=== PATIENT | female | born 1970 | race African-American/Black ===

== ENCOUNTER 2020-11-28 17:15 | Emergency (ER) | payer OTHER ==
[~2020-11-28] VITALS: Ht 180.3 cm; Wt 97.1 kg
--- NOTE | 2020-11-28 17:30 | NUR ---
right hip pain radiating to right leg x 2 days10/10 pain scale Hx arthritis. Patient a/ox4, ambulatory with steady gait. Assisted to bed.
[2020-11-28] MEDS ORDERED: KETOROLAC TROMETHAMINE INJ 60 MG/2 ML VIAL IM ONE (17:49)
[2020-11-28] MEDS ORDERED: DEXAMETHASONE SOD PHOSPHATE 10 MG/ML VIAL ONE (17:49)
[2020-11-28] MEDS: DEXAMETHASONE SOD PHOSPHATE 10 MG/ML VIAL IM ONE (17:56)
[2020-11-28] MEDS: KETOROLAC TROMETHAMINE INJ 60 MG/2 ML VIAL IM ONE (17:56)
--- NOTE | 2020-11-28 18:11 | NUR ---
Patient resting, no distress noted.
[2020-11-28 18:31] LABS: BILIRUBIN,URINE Negative (NEGATIVE); COLOR,URINE YELLOW (YELLOW); LEUKOCYTE ESTERASE ,URINE Negative (NEGATIVE); NITRITE, URINE Negative (NEGATIVE); PROTEIN,URINE Negative (NEGATIVE); UGLUCOSE Negative (NEGATIVE); UROBILINOGEN,URINE 0.2 EU/dL (0.2)
[2020-11-28 19:08] VITALS: BP 155/139
--- NOTE | 2020-11-28 19:08 | NUR ---
Patient discharged to home in stable condition. Written and verbal after care instructions given. Patient verbalizes understanding of instruction.
[2020-11-28 19:14] LABS: BACTERIA,URINE Rare /HPF (None Seen); SQUAMOUS EPITHELIAL CELL,UR Few /HPF (None Seen); WBC,URINE NONE SEEN /HPF (0-3)
== END 2020-11-28 19:09 | disposition home or self-care (01) ==
LOC: ER 17:22
DX: M54.41 Lumbago with sciatica, right side (principal); M19.90 Unspecified osteoarthritis, unspecified site
CPT/HCPCS: 81001; 84703; 96372 ×2; 99284; J1100; J1885

== ENCOUNTER 2020-12-28 11:38 | Emergency (ER) | payer OTHER ==
[~2020-12-28] VITALS: Ht 180.3 cm; Wt 122.9 kg
--- NOTE | 2020-12-28 12:00 | NUR ---
Patient came in to the er c/o RLE pain x 2 weeks. On room air, breathing evenly and unlabored. Kept comfortable, will continue to monitor accordingly.
[2020-12-28] MEDS ORDERED: KETOROLAC TROMETHAMINE 15 MG/ML VIAL ONE (12:16)
[2020-12-28] MEDS ORDERED: KETOROLAC TROMETHAMINE INJ 30 MG/ML VIAL IM ONE (12:30)
[2020-12-28 12:47] VITALS: BP 149/81
--- NOTE | 2020-12-28 12:47 | NUR ---
Patient discharged to home in stable condition. Written and verbal after care instructions given. Patient verbalizes understanding of instruction.
== END 2020-12-28 12:47 | disposition home or self-care (01) ==
LOC: ER 11:53
DX: M54.31 Sciatica, right side (principal); M79.604 Pain in right leg; M19.90 Unspecified osteoarthritis, unspecified site
CPT/HCPCS: 93971; 96372; 99284; J1885

== ENCOUNTER 2022-03-09 13:52 | Emergency (ER) | payer OTHER ==
[~2022-03-09] VITALS: Ht 180.3 cm; Wt 102.1 kg
[2022-03-09 14:08] VITALS: BP 121/77
--- NOTE | 2022-03-09 14:10 | NUR ---
BIBS FOR C/O LOW BACK PAIN RADIATING TO RIGHT LEG SINCE LAST NIGHT,DENIES ANY TRAUMA. RATES PAINS /. WILL CONTINUE TO MONITOR THE PATIENT.
[2022-03-09] MEDS ORDERED: KETOROLAC TROMETHAMINE INJ 60 MG/2 ML VIAL IM ONE (14:29)
[2022-03-09] MEDS ORDERED: CYCLOBENZAPRINE 10 MG TABLET ONE (14:30)
[2022-03-09] MEDS: CYCLOBENZAPRINE 10 MG TABLET PO ONE (14:45)
[2022-03-09] MEDS: KETOROLAC TROMETHAMINE INJ 60 MG/2 ML VIAL IM ONE (14:46)
[2022-03-09] MEDS ORDERED: IBUP-1957 PO (15:35)
[2022-03-09] MEDS ORDERED: CYCL5TAB PO (15:35)
== END 2022-03-09 15:41 | disposition home or self-care (01) ==
LOC: ER 13:52
DX: M54.41 Lumbago with sciatica, right side (principal); M19.90 Unspecified osteoarthritis, unspecified site; Z60.2 Problems related to living alone; Z79.899 Other long term (current) drug therapy
CPT/HCPCS: 96372; 99283; J1885

== ENCOUNTER → 2025-05-26 | Emergency (ER) | payer OTHER ==
[~2025-05-26] VITALS: Ht 180.3 cm; Wt 102.1 kg
[~2025-05-26] MED LIST: ACETAMINOPHEN ES 500 MG TABLET ONE; CYCL5TAB PO; HYDR-3972 PO; IBUP-1490 PO; IBUP-1957 PO; KETOROLAC TROMETHAMINE INJ 30 MG/ML VIAL ONE; dexaMETHasone SOD PHOSPHATE 4 MG/ML VIAL ONE
[2025-05-26 17:43] VITALS: TEMP 98.5
[2025-05-26] MEDS: ACETAMINOPHEN ES 500 MG TABLET PO ONE (18:36)
[2025-05-26] MEDS: KETOROLAC TROMETHAMINE INJ 30 MG/ML VIAL IM ONE (18:37)
[2025-05-26 19:01] LABS: APPEARANCE,URINE CLEAR (CLEAR); BLOOD, URINE 1+ Ery/uL (NEGATIVE); LEUKOCYTE ESTERASE ,URINE 1+ (NEGATIVE); NITRITE, URINE NEGATIVE (NEGATIVE); UGLUCOSE NEGATIVE (NEGATIVE)
[2025-05-26 19:02] LABS: PREGNANCY TEST URINE QUAL NEGATIVE (NEGATIVE)
[2025-05-26 19:18] LABS: ADD URINE CULTURE YES
[2025-05-26 20:04] LABS: PLATELET COUNT (AUTO) 350 K/uL (150-450); RED BLOOD CELL COUNT(AUTO) 4.87 MIL/uL (4.0-5.2); RED CELL DISTRIBUTION WIDTH 14.9 % (11.5-15.0); WHITE BLOOD COUNT (AUTO) 8.9 K/uL (4.3-11.0)
[2025-05-26 20:21] LABS: ASPARTATE AMINOTRANSFERASE 34.0 U/L (15-37); CALCIUM, SERUM 9.5 mg/dL (8.5-10.1); CREATININE 0.8 mg/dL (0.6-1.3); SODIUM SERUM 138.0 mmol/L (136-145); TOTAL PROTEIN, SERUM 7.6 g/dL (6.4-8.2); UREA NITROGEN, BLOOD 11.0 mg/dL (7-18)
[2025-05-26 21:20] VITALS: BP 142/47; O2SAT 98
[2025-05-26] MEDS: dexaMETHasone SOD PHOSPHATE 4 MG/ML VIAL IM ONE (22:37)
== END | disposition home or self-care (01) ==
LOC: ER 17:45
DX: M54.41 Lumbago with sciatica, right side (principal); R10.2 Pelvic and perineal pain; Z60.2 Problems related to living alone; Z79.899 Other long term (current) drug therapy
CPT/HCPCS: 99284; 96372 ×2; 72110; 85025; 80048; 83690; 80076; 84703; 81001; 36415; J1885; J1100; 87086-TC